=== PATIENT | female | born 1985 | race Two or more races ===

== ENCOUNTER → 2024-02-27 14:05 | Outpatient (CLI) | payer OTHER | END | disposition home or self-care (01) | LOC: PRENATAL 14:05 | PROVIDERS: ATTEND Obstetrics & Gynecology Maternal & Fetal Medicine | DX: O36.80X0 Pregnancy with inconclusive fetal viability, not applicable or unspecified (principal); Z36.82 Encounter for antenatal screening for nuchal translucency; Z36.9 Encounter for antenatal screening, unspecified; O09.521 Supervision of elderly multigravida, first trimester; Z3A.12 12 weeks gestation of pregnancy ==

== ENCOUNTER 2024-04-19 14:02 | Outpatient (CLI) | payer OTHER | END 2024-04-19 14:03 | disposition home or self-care (01) | LOC: PRENATAL 14:02 | PROVIDERS: ATTEND Obstetrics & Gynecology Maternal & Fetal Medicine | DX: O35.3XX0 Maternal care for (suspected) damage to fetus from viral disease in mother, not applicable or unspecified (principal); O44.00 Complete placenta previa NOS or without hemorrhage, unspecified trimester; O09.529 Supervision of elderly multigravida, unspecified trimester; Z3A.19 19 weeks gestation of pregnancy ==

== ENCOUNTER → 2024-07-15 10:42 | Outpatient (CLI) | payer OTHER | END | disposition home or self-care (01) | LOC: PRENATAL 10:42 | PROVIDERS: ATTEND Obstetrics & Gynecology Maternal & Fetal Medicine | DX: O26.849 Uterine size-date discrepancy, unspecified trimester (principal); O36.8199 Decreased fetal movements, unspecified trimester, other fetus; O09.529 Supervision of elderly multigravida, unspecified trimester; O99.019 Anemia complicating pregnancy, unspecified trimester; Z3A.33 33 weeks gestation of pregnancy ==

== ENCOUNTER 2024-07-22 10:38 | Outpatient (CLI) | payer OTHER | END 2024-07-22 10:39 | disposition home or self-care (01) | LOC: PRENATAL 10:38 | PROVIDERS: ATTEND Obstetrics & Gynecology Maternal & Fetal Medicine | DX: Z76.1 Encounter for health supervision and care of foundling (principal) ==

== ENCOUNTER → 2024-08-12 08:33 | Outpatient (CLI) | payer OTHER | END | disposition home or self-care (01) | LOC: PRENATAL 08:33 | PROVIDERS: ATTEND Obstetrics & Gynecology Maternal & Fetal Medicine | DX: Z76.1 Encounter for health supervision and care of foundling (principal) ==